=== PATIENT | male | born 1975 | race American Indian/Alaskan Native ===

== ENCOUNTER 2018-06-13 09:53 | Emergency (ER) | payer OTHER ==
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
[2018-06-13] MEDS ORDERED: NORCO 5/325 PO ONE (12:37)
[2018-06-13] MEDS ORDERED: IBUPROFEN PO ONE (12:37)
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
[2018-06-13 13:35] VITALS: BP 140/90
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
== END 2018-06-13 13:32 | disposition left against medical advice (07) ==
LOC: ED 09:53
DX: R07.89 Other chest pain (principal); Z53.21 Procedure and treatment not carried out due to patient leaving prior to being seen by health care provider
CPT/HCPCS: 71046; 93005; 93010